=== PATIENT | female | born 1980 | race Caucasian/White ===

== ENCOUNTER 2017-02-13 08:00 | Outpatient (CLI) | payer MEDICAID | END 2017-02-13 08:01 | disposition home or self-care (01) | DX: M79.646 Pain in unspecified finger(s) (principal) ==

== ENCOUNTER 2017-03-16 13:28 | Outpatient (CLI) | payer MEDICAID ==
--- NOTE | 2017-03-17 15:19 | XRAY Report ---
EXAM: LEFT DIGIT RADIOGRAPHY EXAM DATE: 03/16/2017 01:48 PM. CLINICAL HISTORY: FINGER JOINT PAINFUL ON MOVEMENT. COMPARISON: None. TECHNIQUE: 1 view. FINDINGS: Bones: Normal. No fracture or bone lesion. Joints: Normal. No subluxations. Soft Tissues: Normal. No soft tissue swelling. IMPRESSION: Unremarkable single frontal view of the left finger. [facility] Referring Provider Line: [phone] SITE ID: [id number]
== END 2017-03-16 13:29 | disposition home or self-care (01) ==
LOC: DI.S 13:28
PROVIDERS: ATTEND Nurse Practitioner Family
DX: M25.542 Pain in joints of left hand (principal)
CPT/HCPCS: 73140

== ENCOUNTER 2017-06-06 08:48 | Outpatient (CLI) | payer MEDICAID ==
[2017-06-06 18:58] LABS: CREATININE 0.7 mg/dL (0.4-1.0)
== END 2017-06-06 08:49 | disposition home or self-care (01) ==
LOC: LAB.F 08:48
PROVIDERS: ATTEND Psychiatry & Neurology Psychiatry
DX: F31.60 Bipolar disorder, current episode mixed, unspecified (principal)
CPT/HCPCS: 36415; 80178; 82565; 84443

== ENCOUNTER 2017-08-22 14:58 | Outpatient (CLI) | payer MEDICAID ==
[2017-08-22 17:41] LABS: BASOPHILS # (AUTO) 0.1 10^3/uL (0.0-0.1); BASOPHILS % (AUTO) 0.9 %; EOSINOPHILS # (AUTO) 0.3 10^3/uL (0.0-0.7); HCT - HEMATOCRIT 41.3 % (37.0-47.0); HGB - HEMOGLOBIN 13.9 g/dL (12.0-16.0); LYMPHOCYTES # (AUTO) 2.1 10^3/uL (1.5-3.5); LYMPHOCYTES % (AUTO) 19.3 %; MEAN CORPUSCULAR HEMOGLOBIN 31.1 pg (27.0-31.0); MEAN CORPUSCULAR HGB CONC 33.7 g/dL (32.0-36.0); MEAN CORPUSCULAR VOLUME 92.3 fL (81.0-99.0); MEAN PLATELET VOLUME 9.3 fL (7.9-10.8); MONOCYTES # (AUTO) 0.4 10^3/uL (0.0-1.0); MONOCYTES % (AUTO) 3.4 %; NEUTROPHILS # (AUTO) 8.1 10^3/uL (1.5-6.6); NEUTROPHILS % (AUTO) 73.4 %; RED BLOOD COUNT 4.47 10^6/uL (4.20-5.40); RED CELL DISTRIBUTION WIDTH 12.3 % (12.0-15.0)
[2017-08-22 17:53] LABS: BILIRUBIN,TOTAL 0.5 mg/dL (0.2-1.0); CALCIUM 9.1 mg/dL (8.5-10.3); CREATININE 0.7 mg/dL (0.4-1.0); POTASSIUM 3.8 mmol/L (3.5-5.0); TOTAL PROTEIN 7.5 g/dL (6.7-8.2)
[2017-08-24 07:23] LABS: TEST RESULT REPORT (())
== END 2017-08-22 14:59 | disposition home or self-care (01) ==
LOC: LAB.F 14:58
PROVIDERS: ATTEND Nurse Practitioner Family
DX: F31.60 Bipolar disorder, current episode mixed, unspecified (principal); Z11.3 Encounter for screening for infections with a predominantly sexual mode of transmission
CPT/HCPCS: 36415; 80053; 81599; 85025; 86592; 86803; 87389

== ENCOUNTER 2017-10-26 09:38 | Outpatient (CLI) | payer MEDICAID ==
[2017-10-26 18:53] LABS: LITHIUM 0.35 mmol/L
== END 2017-10-26 09:39 | disposition home or self-care (01) ==
LOC: LAB.F 09:38
PROVIDERS: ATTEND Psychiatry & Neurology Psychiatry
DX: F31.60 Bipolar disorder, current episode mixed, unspecified (principal)
CPT/HCPCS: 36415; 80178; 84443

== ENCOUNTER 2018-06-19 13:35 | Outpatient (CLI) | payer MEDICAID | END 2018-06-19 13:36 | disposition home or self-care (01) | LOC: LAB.R 13:35 | PROVIDERS: ATTEND Nurse Practitioner Family | DX: R30.0 Dysuria (principal) | CPT/HCPCS: 87086 ==

== ENCOUNTER 2018-06-19 14:23 | Outpatient (CLI) | payer MEDICAID ==
[2018-06-19 17:33] LABS: LITHIUM 0.41 mmol/L
== END 2018-06-19 14:24 | disposition home or self-care (01) ==
LOC: LAB.F 14:23
PROVIDERS: ATTEND Nurse Practitioner Family
DX: F31.60 Bipolar disorder, current episode mixed, unspecified (principal); R30.0 Dysuria
CPT/HCPCS: 36415; 80178; 81001; 82310; 82550; 82553; 84443; 87086